=== PATIENT | male | born 1970 | race Caucasian/White ===

== ENCOUNTER 2017-04-05 13:51 | Emergency (ER) | payer OTHER ==
[~2017-04-05] VITALS: Ht 160 cm; Wt 75.5 kg
[2017-04-05 13:57] VITALS: Ht 160 cm; Wt 75.5 kg
[2017-04-05 15:51] LABS: BASOPHILS % 0.4 % (0.0-2.0); EOSINOPHILS # 0.1 10^3/ul (0.0-0.5); HEMATOCRIT 39.5 % (42.0-52.0); HEMOGLOBIN 13.5 g/dl (14.0-18.0); LYMPHOCYTES # 1.2 10^3/ul (0.8-2.9); LYMPHOCYTES % 16.5 % (15.0-51.0); MEAN CORPUSCULAR HGB CONC 34.2 g/dl (32.0-37.0); MEAN CORPUSCULAR VOLUME 84.8 fl (82.0-101.0); MEAN PLATELET VOLUME 11.5 fl (7.4-10.4); MONOCYTE # 0.9 10^3/ul (0.3-0.9); MONOCYTES % 11.9 % (0.0-11.0); NEUTROPHILS % 69.8 % (39.0-77.0); PLATELET COUNT 189 10^3/UL (140-415); RED BLOOD COUNT 4.66 10^6/ul (4.70-6.10); RED CELL DISTRIBUTION WIDTH 13.1 % (11.5-14.5); WHITE BLOOD COUNT 7.3 10^3/ul (4.8-10.8)
--- NOTE | 2017-04-05 15:55 | RADRPT ---
PROCEDURE: US Lower extremity Venous. CLINICAL INDICATION: Right leg edema , pain TECHNIQUE: Multiple sonographic images of the right lower extremity deep venous system was obtaine d utilizing grayscale, color-flow, compressive sonography and doppler imaging with augmentation. Th e images were reviewed on a PACS workstation. COMPARISON: None. FINDINGS: There is normal compressibility and flow within the right common femoral, femoral, posterior tibial, peroneal and popliteal veins. RPTAT: AA IMPRESSION: No sonographic evidence for deep venous thrombosis. .Daron Tyler MD, MD Date Time Electronically viewed and signed by .Daron Tyler MD, on 04/05/2017 15:55 .S/
[2017-04-05 16:13] LABS: ALBUMIN 4.4 g/dl (3.3-4.9); ALBUMIN/GLOBULIN RATIO 1.18; BILIRUBIN,INDIRECT 1.7 mg/dl (0-1.1); BILIRUBIN,TOTAL 1.7 mg/dl (0.2-1.3); C-REACTIVE PROTEIN 7.1 mg/dl (0.0-0.9); CALCIUM 8.8 mg/dl (8.4-10.2); CREATININE 0.63 mg/dl (0.61-1.24); POTASSIUM 3.7 mmol/L (3.5-5.1); TOTAL PROTEIN 8.1 g/dl (6.1-8.1)
[2017-04-05] MEDS ORDERED: HYDR-906 PO (16:45)
[2017-04-05] MEDS ORDERED: ASPI325T32 PO (16:49)
[2017-04-05] MEDS ORDERED: morphine 4 MG/ML VIAL IV STA (17:25)
[2017-04-05] MEDS ORDERED: ONDANSETRON 4 MG INJ IV STA (17:25)
[2017-04-05 19:30] VITALS: BP 120/67; PULSE 65; RESP 18; TEMP 98.9
--- NOTE | 2017-04-05 19:35 | ERA ---
ER Documentation Chief Complaint Date/Time DATE: 04/05/17 TIME: 19:31 Chief Complaint had surgery on march 30, swelling right x 2 days HPI This is a 46-year-old male with a past medical history of ACL injury to the right knee requiring multiple operations who is presenting with swelling, induration, erythema and pain to the right lateral thigh. The patient had an ACL repair performed by Dr. Álvarez several months ago. The patient has been struggling with tightness and decreased range of motion to the knee since then. He actually had an arthroscopic intervention to help with mobility of the ACL on March 30, 2017. The patient has not had significant increase in mobility since then. He is remained relatively immobile since then. Over the last 1-2 days, he developed increased swelling, induration and pain to the distal lateral thigh. He was evaluated by his orthopedic surgeon today, Dr. Álvarez, who requested that he go to the emergency department for evaluation for a DVT. Patient denies any fever or chills. He denies any nausea or vomiting. He has no chest pain or trouble breathing. He has no abdominal pain. He has no changes to bowel movements urination. He has no issues with his upper extremities or his left lower extremity. His sensation is intact in all extremities. He is able to move his ankle distal to the area of presenting complaint. ROS All systems reviewed and are negative except as per history of present illness. Medications Home Meds Reported Medications Aspirin (Aspirin) Unknown Strength Tablet.dr, 1 TAB PO DAILY 04/05/17 Hydrocodone/Acetaminophen (Ackley 5-325 Tablet) 1 Each Tablet, 1 EACH PO NEEDED, TAB 04/05/17 Allergies Allergies: Coded Allergies: No Known Allergy (Unverified , 04/05/17) PMhx/Soc History of Surgery: Yes (rt knee scope) Anesthesia Reaction: No Hx Neurological Disorder: No Hx Respiratory Disorders: No Hx Cardiac Disorders: No Hx Psychiatric Problems: No Hx Miscellaneous Medical Probl: No Hx Alcohol Use: No Hx Substance Use: No Hx Tobacco Use: No Smoking Status: Never smoker FmHx Family History: No diabetes Physical Exam Vitals Vital Signs Date Time Temp Pulse Resp B/P Pulse Ox O2 Delivery O2 Flow Rate FiO2 04/05/17 19:30 98.9 65 18 120/67 99 Room Air 04/05/17 13:57 98.1 69 18 128/69 99 Physical Exam Const: NAD, Well developed, Well Nourished Head: Atraumatic Eyes: Normal Conjunctiva ENT: Normal External Ears, Nose and Mouth. Neck: Full range of motion..~ No meningismus. Resp: Clear to auscultation bilaterally Cardio: Regular rate and rhythm, no murmurs Abd: Soft, non tender, non distended. Normal bowel sounds Skin: No petechiae or rashes Back: No midline or flank tenderness Ext: No cyanosis, RLE edema with induration and slight erythema to the right lateral thigh. No erythema or induration or purulence over knee or surgical sites. limited ROM to right hip and knee 2/2 pain. Neur: Awake and alert, normal sensation, normal strength Psych: Normal Mood and Affect Result Diagram: 04/05/17 1530 04/05/17 1530 Results 24 hrs Laboratory Tests Test 04/05/17 15:30 White Blood Count 7.310^3/ul Red Blood Count 4.6610^6/ul Hemoglobin 13.5g/dl Hematocrit 39.5% Mean Corpuscular Volume 84.8fl Mean Corpuscular Hemoglobin 29.0pg Mean Corpuscular Hemoglobin Concent 34.2g/dl Red Cell Distribution Width 13.1% Platelet Count 97410^3/UL Mean Platelet Volume 11.5fl Neutrophils % 69.8% Lymphocytes % 16.5% Monocytes % 11.9% Eosinophils % 1.0% Basophils % 0.4% Nucleated Red Blood Cells % 0.0/100WBC Neutrophils # (Manual) 5.110^3/ul Lymphocytes # 1.210^3/ul Monocytes # 0.910^3/ul Eosinophils # 0.110^3/ul Basophils # 0.010^3/ul Nucleated Red Blood Cells # 0.010^3/ul Erythrocyte Sedimentation Rate 63mm/Hr Sodium Level 139mmol/L Potassium Level 3.7mmol/L Chloride Level 102mmol/L Carbon Dioxide Level 24mmol/L Anion Gap 17 Blood Urea Nitrogen 11mg/dl Creatinine 0.63mg/dl Glucose Level 123mg/dl Calcium Level 8.8mg/dl Total Bilirubin 1.7mg/dl Direct Bilirubin 0.00mg/dl Indirect Bilirubin 1.7mg/dl Aspartate Amino Transf (AST/SGOT) 28IU/L Alanine Aminotransferase (ALT/SGPT) 61IU/L Alkaline Phosphatase 76IU/L C-Reactive Protein 7.1mg/dl Total Protein 8.1g/dl Albumin 4.4g/dl Globulin 3.70g/dl Albumin/Globulin Ratio 1.18 Current Medications Medications (Trade) Dose Ordered Sig/Pineda Route PRN Reason Start Time Stop Time Status Last Admin Dose Admin Morphine Sulfate (morphine) 4 mg ONCE STAT IV 04/05/17 17:25 04/05/17 17:29 DC 04/05/17 17:33 Ondansetron HCl (Zofran Inj) 4 mg ONCE STAT IV 04/05/17 17:25 04/05/17 17:29 DC 04/05/17 17:32 Oxycodone HCl (Roxicodone) 5 mg ONCE ONCE PO 04/05/17 20:00 04/05/17 20:01 DC 04/05/17 20:07 Procedures/MDM The patient's presenting with swelling, induration and slight erythema of his right leg approximately 1 week after having arthroscopic knee surgery. The patient was evaluated by his orthopedic surgeon this afternoon he did not feel that there were findings consistent with an infection, but he was concerned about a DVT. A duplex study of the right lower extremity was completed that did not reveal any signs of DVT. There is a possibility of brewing cellulitis that will require close monitoring. The patient's blood work was obtained and reviewed. The patient does not have a leukocytosis or left shift. He is afebrile, and I do not suspect a systemic infection at this time. The patient has a mild anemia that does not need to be emergently treated. The patient's BMP is unremarkable. The patient does have an elevated ESR and CRP, but this may be attributed to his recent surgery, so the usefulness of these tests is limited. The orthopedic surgeon on-call, Dr. Vides, was called to discuss the case. He was adamant about the need to call the patient's surgeon who performed the operation, as he would know how best to proceed. I felt that this was very appropriate. I called his orthopedic surgeon, Dr. Álvarez, who confirmed that he had seen him that afternoon and was reassured by the negative Doppler study. I discussed with him the possibility of cellulitis, and he did not want to initiate antibiotics at this time. He knows the patient very well and has been following him since his first ACL repair. The patient has had chronic immobility issues and swelling with some induration. He is not convinced of an infection at this time. I will not start antibiotics as instructed. The patient will be given strict precautions with which to return to the emergency department including worrisome signs of cellulitis or signs of a systemic infection such as fever or chills. The patient will call his orthopedic surgeon tomorrow to confirm his appointment for later this week. At this time, the patient is stable for discharge. He was given narcotic medication in the emergency department, but I do not intend to write a prescription as his orthopedic surgeon reports that he should already have a prescription at home. Departure Diagnosis: Primary Impression: Pain of right leg Additional Impression: Right leg swelling Condition: Stable TFIFANIE LOWERY MD Apr 05, 2017 19:35
[2017-04-05] MEDS ORDERED: oxyCODONE 5 MG TAB PO ONE (20:00)
== END 2017-04-05 21:47 | disposition home or self-care (01) ==
LOC: E/R 13:51
DX: G89.18 Other acute postprocedural pain (principal); M79.604 Pain in right leg; M79.89 Other specified soft tissue disorders; Z79.82 Long term (current) use of aspirin
CPT/HCPCS: 36415; 80053; 85025; 85651; 86140; 87040; 93971; 96374; 96375; 99284; J2270; J2405